=== PATIENT | female | born 1950 | race Caucasian/White ===

== ENCOUNTER 2018-06-30 12:30 | Inpatient (IN) | payer OTHER ==
[~2018-06-30] VITALS: Ht 160 cm; Wt 62.1 kg
[2018-06-30] MEDS ORDERED: PRAVASTATIN PO (15:16)
[2018-06-30] MEDS ORDERED: COZAAR100 MG PO (15:16)
[2018-06-30] MEDS ORDERED: [UNRECOGNIZED DRUG - OTHER] PO (15:17)
[2018-06-30] MEDS ORDERED: OMEGA 3 1,0001 EACH PO (15:17)
[2018-07-07] MEDS ORDERED: PRAVACHOL80 MG PO (11:40)
[2018-07-07] MEDS ORDERED: CLONAZEPAM0.5 MG PO (11:41)
[2018-07-08] MEDS ORDERED: DOCUSATE SODIU100 MG PO (12:00)
[2018-07-08] MEDS ORDERED: PERCOCET 5-3251 EACH PO (12:02)
[2018-07-08] MEDS ORDERED: CLONAZEPAM0.5 MG PO (12:02)
== END 2018-07-08 17:45 | disposition home or self-care (01) | DRG 454 ==
LOC: O/R 07-07 04:45 → SURH 07-07 04:45
PROVIDERS: ADMIT Orthopaedic Surgery Orthopaedic Surgery of the Spine
PROC: 0RG2071 Fusion of 2 or more Cervical Vertebral Joints with Autologous Tissue Substitute, Posterior Approach, Posterior Column, Open Approach (ICD-10-PCS; 2018-07-07)
PROC: 0RT30ZZ Resection of Cervical Vertebral Disc, Open Approach (ICD-10-PCS; 2018-07-07)
PROC: 07DS3ZZ Extraction of Vertebral Bone Marrow, Percutaneous Approach (ICD-10-PCS; 2018-07-07)
PROC: 0RG20A0 Fusion of 2 or more Cervical Vertebral Joints with Interbody Fusion Device, Anterior Approach, Anterior Column, Open Approach (ICD-10-PCS; principal; 2018-07-07 07:00)
DX: M47.12 Other spondylosis with myelopathy, cervical region (principal); M50.021 Cervical disc disorder at C4-C5 level with myelopathy; I10 Essential (primary) hypertension